=== PATIENT | female | born 1980 | race Caucasian/White ===

== ENCOUNTER 2021-04-26 19:41 | Emergency (ER) | payer OTHER ==
--- NOTE | 2021-04-26 21:41 | PHYS DOC ---
General Adult EDM: Chief Complaint: EYE PROBLEMS HPI: HPI: Patient is a 40-year-old female who presents with left eye pain. Patient states on Wednesday morning she woke up and had pain to the corner of her eye and underneath her lower eyelid. Patient was seen by her PCP and given erythromycin ointment to use for a stye. Patient reports the next morning she woke up and her eye was very swollen and red. Patient was seen by urgent care and told that she had an eye infection and to stop the erythromycin. Patient was prescribed Z-Allen and prednisone. Patient has been taking oral medications for 48 hours with no symptom relief. Patient states she woke up this morning and her eye was matted together with yellow discharge. Patient has an increase in pain underneath her eye. Patient reports she has a history of shingles on the left side of her eye. Denies medical history. (OTTONIEL HENDERSON APRN) Review of Systems: Review of Systems: ROS At least 10 ROS systems have been reviewed and are negative except as documented in the HPI. General: Negative except as outlined in HPI above. Skin: Negative except as outlined in HPI above. HEENT: Negative except as outlined in HPI above. Neck: Negative except as outlined in HPI above. Respiratory: Negative except as outlined in HPI above.. Cardiovascular: Negative except as outlined in HPI above. Abdomen: Negative except as outlined in HPI above. : Negative except as outlined in HPI above. Back/MSK: Negative except as outlined in HPI above. Neuro: Negative except as outlined in HPI above. Psych: Negative except as outlined in HPI above. (OTTONIEL HENDERSON FELT COVERER) Physical Exam: PE: Constitutional: Well developed, well nourished, no acute distress, non-toxic appearance. [] HENT: Normocephalic, atraumatic, bilateral external ears normal, oropharynx moist, no oral exudates, nose normal. [] Eyes: PERRLA, conjunctive is red, yellow discharge Neck: Normal range of motion, no tenderness, supple, no stridor. [] Cardiovascular:Heart rate regular rhythm, no murmur [] Lungs & Thorax: Bilateral breath sounds clear to auscultation [] Abdomen: Bowel sounds normal, soft, no tenderness, no masses, no pulsatile masses. [] Skin: Warm, dry, no erythema, no rash. [] Back: No tenderness, no CVA tenderness. [] Extremities: No tenderness, no cyanosis, no clubbing, ROM intact, no edema. [] Neurologic: Alert and oriented X 3, normal motor function, normal sensory f unction, no focal deficits noted. [] Psychologic: Affect normal, judgement normal, mood normal. [] (OTTONIEL HENDERSON APRN) EKG: EKG: [] (OTTONIEL HENDERSON APRN) Radiology/Procedures: Radiology/Procedures: [] (OTTNOIEL HENDERSON APRN) Heart Score: C/O Chest Pain: No Risk Factors: Risk Factors: DM, Current or recent (<one month) smoker, HTN, HLP, family history of CAD, obesity. Risk Scores: Score 0 - 3: 2.5% MACE over next 6 weeks - Discharge Home Score 4 - 6: 20.3% MACE over next 6 weeks - Admit for Clinical Observation Score 7 - 10: 72.7% MACE over next 6 weeks - Early Invasive Strategies (OTTONIEL HENDERSON APRN) Course & Med Decision Making: Course & Med Decision Making Pertinent Labs and Imaging studies reviewed. (See chart for details) [] 40-year-old female presents with left eye pain, discharge. Patient was seen PCP and urgent care on 2 different occasions and prescribed azithromycin along with prednisone. Patient reports this morning she woke up with discharge and eye matted together. And an increase in pain and swelling. Denies visual changes. Denies trauma or injury to the eye. Patient normally wears contacts but has been using her eyeglasses. Advised patient to stop the oral medications. Patient prescribed levofloxacin eyedrops for bacterial conjunctivitis. Patient should continue using her eyeglasses and abstain from contacts at this time. Continue using warm compress. Patient is appreciative and agrees with discharge plan. (OTTONIEL HENDERSON APRN) Course & Med Decision Making I was the Attending physician on the above date of service of this patient. This patient was evaluated, examined, treated, and dispositioned from the emergency department by the mid-level practitioner. I was called to bedside at request of BATCH UNLOADER to evaluate patient and repeated certain aspects of history and physical exam. Joint decision made to change all current therapy to an antibiotic that would cover Pseudomonas as patient is a chronic wear of contact lenses with close PCP and Ortho/optometry follow-up Electronically signed, Timothy Levine DO (TIMOTHY LEVINE DO) Shannan Disclaimer: Shannan Disclaimer: This electronic medical record was generated, in whole or in part, using a voice recognition dictation system. (OTTONIEL HENDERSON APRN) Departure Departure: Impression: Primary Impression: Bacterial conjunctivitis of left eye Disposition: HOME / SELF CARE / HOMELESS Condition: STABLE Referrals: NON,STAFF (PCP) Patient Instructions: Bacterial Conjunctivitis, [id number] Additional Instructions: You are seen in the emergency room for left eye drainage and pain. Please stop the current medications you have been prescribed. Prescribing you some eyedrops to treat your bacterial conjunctivitis. Please take them as directed. Continue using a warm compress. Please return to the emergency room if you have worsening symptoms or concerns. EMERGENCY DEPARTMENT GENERAL DISCHARGE INSTRUCTIONS Thank you for coming to [facility] (ED) today and trusting us with you care. We trust that you had a positivie experience in our Emergency Department. If you wish to speak to the department management, you may call the director at [phone]. YOUR FOLLOW UP INSTRUCTIONS ARE FOLLOWS: 1. Do you have a private Doctor? If you do not have a private doctor, please ask for a resource list of physicians or clinics that may be able to assist you with follow up care. 2. The Emergency Physician has interpreted your x-rays. The X-Ray specialist will also review them. If there is a change in the findings, you will be notified in 48 hours when at all possible. 3. A lab test or culture has been done, your results will be reviewed and you will be notified if you need a change in treatment. ADDITIONAL INSTRUCTIONS AND INFORMATION: 1. Your care today has been supervised by a physician who is specially trained in emergency care. Many problems require more than one evaluation for a complete diagnosis and treatment. We recommend that you schedule your follow up appointment as recommended to ensure complete treatment of you illness or injury. If you are unable to obtain follow up care and continue to have a problem, or if your condition worsens, we recommend that you return to the ED. 2. We are not able to safely determine your condition over the phone nor are we able to give sound medical advice over the phone. For these safety reasons, if you call for medical advice we will ask you to come to the ED for further evaluation. 3. If you have any questions regarding these discharge instructions please call the ED at [phone]. SAFETY INFORMATION: In the interest of safety, wellness, and injury prevention; we encourage you to wear your sealbelt, if you smoke; quite smoking, and we encourage family to use a protective helmet for bicycling and other sporting events that present an increased risk for head injury. IF YOUR SYMPTOMS WORSEN OR NEW SYMPTOMS DEVELOP, OR YOU HAVE CONCERNS ABOUT YOUR CONDITION; OR IF YOUR CONDITION WORSENS WHILE YOU ARE WAITING FOR YOUR FOLLOW UP APPOINTMENT; EITHER CONTACT YOUR PRIMARY CARE DOCTOR, THE PHYSICIAN WHOSE NAME AND NUMBER YOU WERE GIVEN, OR RETURN TO THE ED IMMEDIATELY. Scripts Levofloxacin (LEVOFLOXACIN) 5 Ml Drops 1-2 DROP LEFTEYE QID for bacterial conjunctivitis for 7 Days, #5 ML 0 Refills One to two drops every 2 hrs while awake. Up to 8 times daily. Prov: OTTONEIL HENDERSON APRN 04/26/21 OTTONIEL HENDERSON APRN Apr 26, 2021 21:41 TIMOTHY LEVINE DO Apr 27, 2021 20:14
[2021-04-26] MEDS ORDERED: LEVO5DRO3 LEFTEYE (21:51)
== END 2021-04-26 22:30 | disposition home or self-care (01) ==
LOC: ER 19:41
DX: H10.89 Other conjunctivitis (principal)
CPT/HCPCS: 99283